=== PATIENT | female | born 1985 | race Caucasian/White ===

== ENCOUNTER 2019-08-15 10:33 | Emergency (ER) | payer MEDICAID, OTHER ==
[~2019-08-15] VITALS: Ht 154.9 cm; Wt 81.6 kg
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
[2019-08-15 10:42] VITALS: BP 145/92
--- NOTE | 2019-08-15 11:24 | NUR ---
Patient being evaluated by physician at bedside.
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
[2019-08-15] MEDS ORDERED: KETOROLAC 30 MG/ML VIAL IM ONE (11:50)
[2019-08-15 13:10] VITALS: BP 139/84
--- NOTE | 2019-08-15 13:10 | NUR ---
Patient discharged with v/s stable. Written and verbal after care instructions given and explained. Patient alert, oriented and verbalized understanding of instructions. Ambulatory with steady gait. All questions addressed prior to discharge. ID band removed. Patient advised to follow up with PMD. Rx of TYLENOL, MOTRIN given. Patient educated on indication of medication including possible reaction and side effects. Opportunity to ask questions provided and answered.
== END 2019-08-15 13:10 | disposition home or self-care (01) ==
LOC: MED 10:33
DX: S40.012A Contusion of left shoulder, initial encounter (principal); S30.0XXA Contusion of lower back and pelvis, initial encounter; S09.90XA Unspecified injury of head, initial encounter; Y04.2XXA Assault by strike against or bumped into by another person, initial encounter; Y93.89 Activity, other specified; Y92.89 Other specified places as the place of occurrence of the external cause; Y99.8 Other external cause status
CPT/HCPCS: 81025; 96372; 99283; J1885